=== PATIENT | male | born 1940 | race Caucasian/White ===

== ENCOUNTER → 2022-10-08 | Outpatient (CLI) | payer OTHER | END | disposition home or self-care (01) | LOC: RAH 15:21 | PROVIDERS: ATTEND Family Medicine | DX: I51.7 Cardiomegaly (principal); R06.02 Shortness of breath | CPT/HCPCS: 71045 ==

== ENCOUNTER 2024-10-04 17:45 | Emergency (ER) | payer OTHER ==
[~2024-10-04] VITALS: Ht 170.2 cm; Wt 51.3 kg
--- NOTE | 2024-10-04 18:21 | ERN ---
General Chief Complaint: Mechanical Fall Stated Complaint: FALL Time Seen by MD: 17:49 History of Present Illness Initial Comments 84-year-old male who presents for right arm pain and right hip pain status post fall yesterday. Patient reports that he was opening curtains, he lost his balance and he fell. He did hit his head without loss of consciousness. He had his right shoulder. He reports pain to the right side of his head his right shoulder in his right hip. He has been laying in bed all day. He was reports that he was ambulatory although he has not antalgic gait due to the pain. No confusion or vomiting. No focal neurologic deficits. Allergies: Coded Allergies: No Known Drug Allergies (Unverified Allergy, Unknown, 10/04/24) Past Medical History Past Medical History: CAD, Diabetes-Type II, High Cholesterol Past Surgical History: CABG ROS Dictation CONSTITUTIONAL: No chills, no fever, no weakness, no diaphoresis, no malaise. HEAD/FACE: No signs of trauma. EENT: No eye pain, no blurred vision, no tearing, no double vision, no ear pain, no ear discharge, no nose pain, no nasal congestion, no throat pain, no throat swelling, no mouth pain. RESPIRATORY: No cough, no orthopnea, no SOB, no stridor, no wheezing. CARDIOVASCULAR: No chest pain, no edema, no palpitations, no syncope. GASTROINTESTINAL/ABDOMINAL: No abdominal pain, no constipation, no diarrhea, no nausea, no vomiting. GENITOURINARY: No abnormal discharge, no dysuria, no frequent urination, no hematuria. No complaints of pain in the genitals. MUSCULOSKELETAL: Right hip pain right arm pain head pain INTEGUMENTARY: No change in color, no change in hair/nails, no dryness, no lesion, no lumps, no rash. NEUROLOGICAL/PSYCH: No anxiety, not depressed, no emotional problem, no headache, no numbness, no pre-existing deficit, no history of seizures, no tremors, no weakness. HEMATOLOGIC/LYMPHATIC: Not anemic, no history of blood clots, no apparent bleeding, no bruising, glands not swollen. All Systems Negative, Except as Noted. Physical Exam Physical Exam Dictation VITAL SIGNS: Reviewed. GENERAL APPEARANCE: Alert, oriented x3, no acute distress HEAD AND FACE: Non-traumatic. EYES: PERRL, pink conjunctivas, eyelid no trauma, anterior chamber clear. EARS: Pinnas intact and no signs of trauma or erythema. Ear canals clear and no discharge. TMs no erythema. NOSE: No discharge, no bleeding. OROPHARYNX: Mouth normal, teeth no caries, tongue pink. Pharynx clear, no erythema. Tonsils no exudates, no abscesses noted. Mucous membrane moist. NECK: Supple, non-tender, no thyromegaly, no masses, no JVD, no bruits. BREAST: Deferred. CHEST: No tenderness, no crepitus, no paradoxical movement, no retractions. LUNGS: Clear, well-ventilated, symmetric, no rales, no wheezing, no rhonchi, no stridor, good breath sounds bilaterally. HEART: Regular rate, regular rhythm, no murmur, no gallops. VASCULAR: No peripheral edema. ABDOMEN: Soft, positive bowel sounds, nondistended, no guarding, nontender, no rebound, no masses no hepatomegaly, no splenomegaly, no Colón's sign, no hernias. RECTAL: Deferred. GENITAL: Deferred. NEUROLOGICAL: Normal speech, gross motor function intact, gross sensory function intact. MUSCULOSKELETAL: Neck nontender, full range of motion, back nontender, full range of motion. EXTREMITIES: Nontender, full range of motion. SKIN: Color pink, dry, no turgor, no rash, no lacerations, no abrasions, no contusions. LYMPHATICS: Deferred. Results Laboratory and Microbiology Lab and Micro Result Laboratory Tests Test 10/04/24 21:34 White Blood Count 4.0 K/uL (4.8-10.8) L Red Blood Count 2.21 MIL/uL (4.50-6.20) L Hemoglobin 7.8 g/dL (14.0-18.0) L Hematocrit 25.0 % (42-54) L Mean Corpuscular Volume 113.1 fL (79-99) H Mean Corpuscular Hemoglobin 35.3 pg (27.0-33.0) H Mean Corpuscular Hemoglobin Concent 31.2 g/dL (32.0-36.0) L Red Cell Distribution Width 16.0 % (11.0-15.5) H Platelet Count 78 K/uL (130-400) L Mean Platelet Volume 10.6 fL (7.5-10.5) H Immature Granulocyte % (Auto) 0.5 % (0-1) Neutrophils (%) (Auto) 52.3 % (40.0-77.0) Lymphocytes (%) (Auto) 34.1 % (21.0-51.0) Monocytes (%) (Auto) 11.6 % (3.0-13.0) Eosinophils (%) (Auto) 0.5 % (0.0-8.0) Basophils (%) (Auto) 1.0 % (0.0-5.0) Neutrophils # (Auto) 2.1 K/uL (1.8-7.7) Lymphocytes # (Auto) 1.4 K/uL (1.0-4.8) Monocytes # (Auto) 0.5 K/uL (0.1-1.0) Eosinophils # (Auto) 0.02 K/uL (0.00-0.70) Basophils # (Auto) 0.04 K/uL (0.00-0.20) Absolute Immature Granulocyte (auto 0.02 K/uL (0-1) Segmented Neutrophils % 58 % (40-70) Band Neutrophils % 1 % (0-2) Lymphocytes % (Manual) 20 % (22-44) L Monocytes % (Manual) 1 % (2-9) L Eosinophils % (Manual) 1 % (1-6) Nucleated Red Blood Cells 0.0 % (0.0-0.19) Differential Comment MANUAL DIFFERENTIAL Reactive Lymphocytes 19 % (0-0) H White Cell Morphology Comment Platelet Morphology Comment DECREASED Red Blood Cell Morphology See comments Sodium Level 139 mmol/L (136-145) Potassium Level 4.1 mmol/L (3.5-5.1) Chloride Level 104 mmol/L (101-111) Carbon Dioxide Level 29 mmol/L (21-32) Blood Urea Nitrogen 34 mg/dL (7-18) H Creatinine 1.6 mg/dL (0.5-1.3) H Glomerular Filtration Rate Calc 43 mL/min (>90) Random Glucose 115 mg/dL (70-105) H Total Calcium 8.4 mg/dL (8.5-10.1) L Troponin I High Sensitivity 27 ng/L (4-75) Labs Reviewed?: Yes MDM Patient was a 84 year old male with a ground level fall landing on his right side. He was signed out to me from the day shift. Plain films have returned showing a humerus fracture and then also possible right acetabular fracture. I obtained a CT scan of the patient's pelvis and confirmed a right acetabular fracture. I have called the orthopedic surgeon on-call requested that the patient be transferred to a trauma center level of one or two for definitive repair of the pelvic fracture those phone calls her being made. Discussed the patient with the trauma surgeon at [facility] he was accepted the patient and we will do an emergency room to emergency room transfer to [facility]. ED Course Orders Procedure Category Date Status Time Ct Head/Brain W/O CT 10/04/24 Resulted Contrast 18:06 Ct Cervical Spine W/O CT 10/04/24 Resulted Contrast 18:06 Shoulder Comp 2+Vws Rt RAD 10/04/24 Resulted 18:06 Chest 1vw RAD 10/04/24 Resulted 18:06 Pelvis 1-2vws RAD 10/04/24 Resulted 18:06 Hip Unilat 2-3vw Right RAD 10/04/24 Resulted 18:06 Ketorolac PHA 10/04/24 Complete Tromethamine 15mg/Ml 18:30 Hydrocodone/Apap PHA 10/04/24 Complete 5/325 ([place] 5/325mg) 18:30 Ct Pelvis W/O Contrast CT 10/04/24 Resulted 20:38 Cbc With Differential LAB 10/04/24 Complete 21:22 Basic Metabolic Panel LAB 10/04/24 Complete 21:22 12 Lead Ekg Tracing- EKG 10/04/24 Complete Technical 21:22 Troponin I High LAB 10/04/24 Complete Sensitivity 21:24 Manual Differential LAB 10/04/24 Complete 21:34 Current Medications Medications (Trade) Dose Ordered Sig/Maritza Route PRN Reason Start Time Stop Time Status Last Admin Dose Admin Acetaminophen/ Hydrocodone Bitart (NORco 5/325MG) 1 tab ONCE PO 10/04/24 18:30 10/04/24 23:30 DC 10/04/24 18:47 Ketorolac Tromethamine (toRADol) 15 mg ONCE IV 10/04/24 18:30 10/04/24 23:30 DC 10/04/24 18:46 Vital Signs Date Time Temp Pulse Resp B/P (MAP) Pulse Ox O2 Delivery O2 Flow Rate FiO2 10/05/24 02:19 97.9 72 20 117/55 100 Room Air* 0 21 3/24/25 22:52 97.9 73 20 121/41 100 Room Air* 0 21 10/04/24 20:11 97.9 76 20 132/52 100 Room Air* 0 21 10/04/24 19:02 97.9 77 20 130/44 100 Room Air* 0 21 10/04/24 18:02 97.9 74 20 133/37 100 Room Air* 0 21 10/04/24 17:47 75 17 120/48 98 Room Air 0 DX & DISP Disposition: Transfer (Transfer to [facility]) Departure Impression: Primary Impression: Acetabulum fracture, right Additional Impression: Closed fracture of anatomical neck of humerus Condition: Stable Referrals: LISY VEGA MD (PCP) JOSE RAUL MIKE DO Oct 04, 2024 18:21 SALOME SCOTT MD Oct 04, 2024 21:21
[2024-10-04] MEDS: ketOROlac 15MG/ML VIAL (15MG/ML) IV SCH (18:46)
[2024-10-04] MEDS: HYDROcodone/APAP 5/325 1 TAB TABLET PO SCH (18:47)
--- NOTE | 2024-10-04 18:52 | HMCIMG ---
CT HEAD WITHOUT CONTRAST INDICATION: Fall injury TECHNIQUE: Noncontrast axial helical CT images from the vertex through the skull base using 5 mm slice thickness without contrast material. Coronal and sagittal reconstructions were also included. Dose reduction techniques was used using integrated, automated and adaptive dose reduction exposure control. CT was performed with one or more of the following dose reduction techniques: Automated exposure control, adjustment of the mA and/or kV according to patient size, or use of iterative reconstruction technique. COMPARISON: None FINDINGS: Scattered and coalescent subcortical and periventricular white matter low attenuating areas likely represent residual of chronic small vessel arteriopathy and/or remote vascular insult. Generalized mild cerebral cortical atrophy is present.. No evidence for abnormal extra-axial fluid collections or masses. The ventricles and sulci are normal in size and configuration. No evidence for intracranial parenchymal, epidural, or subdural hemorrhage, mass effect or midline shift. The leonardo-white matter differentiation is well preserved. No secondary evidence to suggest acute ischemia. Mild calcific plaque is present along the caba of the cavernous segments of both internal carotid arteries, including mild along the caba of both vertebral arteries at the level of the foramen magnum. The brainstem and cerebellum appear normal. The visualized orbits appear unremarkable. The visible paranasal sinuses and mastoid air cells are clear. The calvarium appears normal. IMPRESSION: Chronic white matter ischemic changes, mild brain atrophy, and arteriosclerotic disease as described, without acute component.
--- NOTE | 2024-10-04 18:54 | HMCIMG ---
CT CERVICAL SPINE WITHOUT CONTRAST INDICATION: Neck pain TECHNIQUE: Contiguous axial computed tomography imaging using 2 mm slice thickness through the cervical spine. Reconstructions in the sagittal and coronal planes. CT was performed with one or more of the following dose reduction techniques: Automated exposure control, adjustment of the mA and/or kV according to patient size, or use of iterative reconstruction technique. COMPARISON: None. FINDINGS: Diagnostic sensitivity of this examination is limited by patient motion artifact. Shallow reversal of the normal cervical lordosis with apex at the C3-4 level. Vertebral bodies are normal stature without evidence for compression deformity or fracture. No evidence for subluxation. Multilevel mild to moderate cervical spondylosis. The craniocervical junction appears normal. The atlantoaxial articulation is within normal limits. The dens is intact. Mild to moderate calcific plaque along the right common carotid arterial bulb caba. IMPRESSION: Limitations as reported. No evidence for fracture or subluxation.
[2024-10-04 21:40] LABS: BASOPHILS # (AUTO) 0.04 K/uL (0.00-0.20); EOSINOPHILS # (AUTO) 0.02 K/uL (0.00-0.70); EOSINOPHILS % (AUTO) 0.5 % (0.0-8.0); IMMATURE GRANULOCYTE ABSOLUTE 0.02 K/uL (0-1); LYMPHOCYTES # (AUTO) 1.4 K/uL (1.0-4.8); LYMPHOCYTES % (AUTO) 34.1 % (21.0-51.0); MEAN CORPUSCULAR HEMOGLOBIN 35.3 pg (27.0-33.0); MEAN CORPUSCULAR HGB CONC 31.2 g/dL (32.0-36.0); MEAN CORPUSCULAR VOLUME 113.1 fL (79-99); MONOCYTES # (AUTO) 0.5 K/uL (0.1-1.0); MONOCYTES % (AUTO) 11.6 % (3.0-13.0); NEUTROPHILS # (AUTO) 2.1 K/uL (1.8-7.7); NEUTROPHILS % (AUTO) 52.3 % (40.0-77.0); PLATELET COUNT (AUTO) 78 K/uL (130-400); RED BLOOD CELL COUNT(AUTO) 2.21 MIL/uL (4.50-6.20)
--- NOTE | 2024-10-04 21:49 | EKG ---
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
[2024-10-04 21:57] LABS: CREATININE 1.6 mg/dL (0.5-1.3); POTASSIUM 4.1 mmol/L (3.5-5.1)
[2024-10-04 22:02] LABS: BAND NEUTROPHILS % (MANUAL) 1 % (0-2); EOSINOPHILS % (MANUAL) 1 % (1-6); LYMPHOCYTES % (MANUAL) 20 % (22-44); MAN.DIFF COMMENT-IMPRESSION MANUAL DIFFERENTIAL; MONOCYTES % (MANUAL) 1 % (2-9); REACTIVE LYMPHOCYTES 19 % (0-0); SEGMENTED NEUTROPHILS % 58 % (40-70); TOTAL CELLS COUNTED 100
[2024-10-04 22:04] LABS: PLATELET MORPHOLOGY COMMENT DECREASED
--- NOTE | 2024-10-04 23:13 | NUR ---
TRANSFER CALL PLACED TO [facility] MENDER TO INITIATE TRANSFER FOR ORTHO SERVICES
--- NOTE | 2024-10-04 23:39 | NUR ---
ACCEPTANCE TO [facility]- RECEIVED, DR CRISTIANE HANCOCK MD IS ACCEPTING PHYSICIAN, ER TO ER TRANSFER, CALL REPORT TO [phone]
--- NOTE | 2024-10-05 00:07 | NUR ---
[facility] CONTACTED FOR TRANSPORT TO [facility]
--- NOTE | 2024-10-05 00:36 | HMCIMG ---
HIP UNILAT 2-3VW RIGHT HISTORY: Pain COMPARISON: None TECHNIQUE: 2 images of right hip were obtained. FINDINGS: The study is limited due to poor positioning. Vascular calcifications are seen. There may be nondisplaced fracture involving the right inferior pubic ramus. Clinical correlation is recommended. Degenerative changes are seen. IMPRESSION: 1. Findings as described above.
--- NOTE | 2024-10-05 00:46 | HMCIMG ---
PELVIS 1-2VWS HISTORY: Status post fall COMPARISON: None TECHNIQUE: Frontal projection of the pelvis was obtained. FINDINGS: Nondisplaced fracture is suspected of the right inferior pubic ramus. No dislocation is seen. The study is limited due to overlying bowel gas. Degenerative changes are seen. IMPRESSION: 1. Findings as described above.
--- NOTE | 2024-10-05 00:48 | HMCIMG ---
SHOULDER COMP 2+VWS RT HISTORY: Status post fall COMPARISON: None TECHNIQUE: 2 images of right shoulder were obtained. FINDINGS: Right humeral fracture with displacement are seen. Bony osteopenia is seen. No dislocation is seen. Degenerative changes are seen. IMPRESSION: 1. Findings as described above.
--- NOTE | 2024-10-05 00:51 | HMCIMG ---
CHEST 1VW HISTORY: Status post fall COMPARISON: 10/08/2022 FINDINGS: A frontal projection of the chest was obtained. Mild bilateral pulmonary infiltrates are seen may be related to mild pulmonary vascular congestion with possible superimposed pneumonitis. Poststernotomy changes are seen. The heart is enlarged. Degenerative changes of the thoracolumbar spine are present. Right humeral neck fracture is seen with mild displacement. All the lines and tubes are again seen in place. No evidence of aortic calcification is seen. IMPRESSION: 1. Bilateral pulmonary infiltrates are seen suggestive of pulmonary vascular congestion with possible superimposed pneumonitis. Right humeral neck fracture displacement.
--- NOTE | 2024-10-05 01:10 | HMCIMG ---
CT PELVIS W/O CONTRAST HISTORY: Pelvic fracture COMPARISON: None TECHNIQUE: Multiple sequential axial images of the pelvis were obtained from the iliac crests through symphysis pubis. Patient was not given contrast through intravenous route. Oral contrast was not given. FINDINGS: Liver and spleen are not completely included in this study. However, spleen appears to be enlarged with hypodense area with splenic laceration not excluded. If needed, contrast enhanced CT of the abdomen and pelvis may be helpful. There are gallstones suspected within the contracted gallbladder. Gallbladder is not completely included in this study. There are comminuted fractures involving the right acetabulum with mild displacement. There is fracture involving the right inferior pubic ramus. Adjacent soft tissue swelling is seen in the pelvis. There may be borderline enlarged retroperitoneal lymph nodes. Sclerotic changes are seen of the iliac bone at the level of the sacroiliac joint. There are normal sized pelvic and inguinal lymph nodes. Fecal material seen throughout the colon. Diverticula are seen within the colon consistent with diverticulosis. No ascites is seen. Atherosclerotic changes are present. Pelvic sidewalls are symmetric bilaterally. Bladder is well distended without wall thickening. IMPRESSION: 1. There are comminuted fractures involving the right acetabulum with mild displacement. There is fracture involving the right inferior pubic ramus. Adjacent soft tissue swelling is seen in the pelvis. 2. Liver and spleen are not completely included in this study. However, spleen appears to be enlarged with hypodense area with splenic laceration not excluded. If needed, contrast enhanced CT of the abdomen and pelvis may be helpful. There are gallstones suspected within the contracted gallbladder. Gallbladder is not completely included in this study. There CT was performed with one or more following dose reduction techniques: automated exposure control, adjustment of the mA and kv according to patient's size, or use of a iterative reconstruction technique.
--- NOTE | 2024-10-05 02:18 | NUR ---
EMS ARRIVED FOR PATIENT AT THIS TIME
[2024-10-05 02:19] VITALS: BP 117/55; PULSE 72; RESP 20; TEMP 97.8; O2SAT 100
== END 2024-10-05 02:20 | disposition short-term general hospital (02) ==
LOC: EDH 17:45
DX: S32.591A Other specified fracture of right pubis, initial encounter for closed fracture (principal); S42.291A Other displaced fracture of upper end of right humerus, initial encounter for closed fracture; E11.9 Type 2 diabetes mellitus without complications; E78.00 Pure hypercholesterolemia, unspecified; I25.10 Atherosclerotic heart disease of native coronary artery without angina pectoris; Z95.1 Presence of aortocoronary bypass graft; W18.39XA Other fall on same level, initial encounter; Y93.89 Activity, other specified; Y92.89 Other specified places as the place of occurrence of the external cause; Y99.8 Other external cause status
CPT/HCPCS: 99285; 70450; 96374; 71045; 84484; 80048; 85025; 36415; 73502; 73030; 72125; 72192; 93005; 72170; J1885